=== PATIENT | female | born 1975 | race Caucasian/White ===

== ENCOUNTER → 2017-02-12 | Day surgery (SDC) | payer SELFPAY ==
[2017-02-12 13:32] VITALS: RESP 16; BMI 24.0
[2017-02-12 14:48] VITALS: BP 118/76; PULSE 74; TEMP 98.1
--- NOTE | 2017-02-12 14:48 | USB ---
EXAMINATION TYPE: US biopsy breast VAD LT, MG diagnostic mammo LT wo CAD DATE OF EXAM: 02/12/2017 CLINICAL HISTORY: N63 lump mass. TECHNIQUE: Ultrasound guided core biopsy of left 11:30 breast. COMPARISON: 01/07/2012 and 02/04/2017 FINDINGS: The procedure of ultrasound guided core biopsy was explained to the patient. Benefits, alternatives, and risks were discussed. An informed consent was then obtained. The patient was placed in supine positioning for imaging and for the procedure. The overlying skin was prepped and draped in usual sterile fashion. Lidocaine buffered with bicarbonate was used as anesthetic into the skin and subcutaneous tissue up to area of concern in the left 11:30 breast. A shiloh was made with surgical scalpel. Under ultrasound guidance, a 12-gauge vacuum assisted biopsy gun device was used to obtain 3 core samples. Following this, a biopsy clip was left in lesion. Postprocedural mammography demonstrates appropriate clip placement. The patient tolerated the procedure well without any immediate complication. The patient was kept in the radiology department for short stay after the procedure and then discharged home in stable condition. IMPRESSION: Successful, uncomplicated ultrasound guided core biopsy of area of concern in the left 11:30 breast, full pathology results to follow. 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 Recommendation Follow up mammogram of the left breast in 6 months. DERECK
== END ==
LOC: RADUSWWP 13:07
PROVIDERS: ATTEND Surgery
DX: D24.2 Benign neoplasm of left breast (principal); N60.12 Diffuse cystic mastopathy of left breast
CPT/HCPCS: 88305; 19083; G0206; A4648; J2001

== ENCOUNTER → 2017-04-24 | Outpatient (CLI) | payer OTHER ==
--- NOTE | 2017-04-27 07:56 | MM ---
Reason for exam: screening (asymptomatic). Last mammogram was performed 2 months ago. History: Patient history of other cancer. Benign US biopsy breast VAD LT of the left breast, February 12, 2017. Retro-pectoral saline implant in the left breast, 2001. Retro-pectoral saline implant in the right breast, 2001. Excisional biopsy of the left breast, 1999. Took hormonal contraceptives for 7 years beginning at age 22. Physical Findings: A clinical breast exam by your physician is recommended on an annual basis and results should be correlated with mammographic findings. MG 3D Screen Mammo Imp/Cad Bilateral CC and MLO view(s) were taken. ID view(s) were taken of the right breast. Prior study comparison: February 12, 2017, left breast MG diagnostic mammo LT wo CAD. February 04, 2017, left breast MG 3d diag mammo imp w/cad LT. The breast tissue is heterogeneously dense. This may lower the sensitivity of mammography. Right breast prothesis. No significant changes when compared with prior studies. ASSESSMENT: Benign, BI-RAD 2 RECOMMENDATION: Routine screening mammogram of both breasts in 1 year.
== END | disposition home or self-care (01) ==
LOC: RADMAMWWP 07:02
PROVIDERS: ATTEND Obstetrics & Gynecology
DX: Z12.31 Encounter for screening mammogram for malignant neoplasm of breast (principal)
CPT/HCPCS: 77067